=== PATIENT | male | born 1955 | race Caucasian/White ===

== ENCOUNTER → 2018-07-07 08:05 | Outpatient (CLI) | payer OTHER, SELFPAY ==
[2018-07-07 10:41] LABS: Vitamin D,25 Hydroxy 27.8 ng/mL (29.95-100.01)
[2018-07-07 10:45] LABS: Anion Gap 8 (5-15); BUN 21 mg/dL (7-18); BUN/Creat Ratio 16.9 RATIO (10-20); Chloride 106 mmol/L (98-107); Cholesterol 127 mg/dL (200); Creatinine, Serum 1.24 mg/dL (0.70-1.30); EST Glomerular Filtration Rate 63 mL/min (>60); Est Glom Filt Rate - Afr Amer 76 mL/min (>60); Glucose 125 mg/dL (74-106); High Density Lipoprotein 32 mg/dL; PSA,Total - Annual Screen 0.49 ng/mL (0.00-4.00); Potassium 4.2 mmol/L (3.5-5.1); Sodium Level 138 mmol/L (136-145); Thyroid Stim Hormone (TSH) 1.78 uIU/mL (0.358-3.74); Triglycerides 125 mg/dL; Very Low Density Lipoprotein 25 mg/dL (5-40)
[2018-07-08 14:04] LABS: Hemoglobin A1c 6.3 % (4.2-6.3)
== END ==
PROVIDERS: Visit Provider Family Medicine
DX: Z00.00 Encounter for general adult medical examination without abnormal findings (principal); I10 Essential (primary) hypertension
CPT/HCPCS: 36415; 80048; 80061; 82306; 83036; 84153; 84443; G0103

== ENCOUNTER 2018-08-02 07:20 | Day surgery (SDC) | payer OTHER, SELFPAY ==
[2018-08-02 07:36] VITALS: BP 148/82; PULSE 65; RESP 16; TEMP 36.3; O2SAT 96; BMI 31.9
--- NOTE | 2018-08-02 08:00 | COLBX_PTH ---
PATIENT: ESE GREENFIELD LOC: EN U#:[id number] AGE/SX: 62/M ROOM: RE08/02/[address]: Dr. Aidan Pride MD : 1955 BED: DIS: 08/02/2018 SPEC #: [id number] RECD: 08/02/18 12:22 STATUS: JUAN JOSE KSENIA #: [id number] [place]: 08/02/18 08:[address]: Aidan Pride DEPT: SURGICAL PATHOLOGY RECD BY: Ana Kasper ENTERED: 08/02/18 12:46 SP TYPE: COLON BX OTHR DR: Dr. Riccardo Brown MD Tissues: A - POLYP B - Descending colon Procedures: Surgery Specimen Level IV HEADER OPERATION: Colonoscopy (MAC) PRE-OP DIAGNOSIS: Screening TISSUE SUBMITTED: A. Hepatic flexure polyps, B. Polyp at 55 cm descending colon MICROSCOPIC DIAGNOSIS A. Polyps at hepatic flexure, biopsy: Fragments of tubular adenoma. B. Colonic polyp at 55 cm, biopsy: Benign lipomatous polyp. See microscopic description. AM:boris 08/03/18 MICROSCOPIC DESCRIPTION Slides are reviewed. B. Sections show normal colonic mucosa overlying a lipoma that is present below the muscularis mucosa. GROSS DESCRIPTION A - Received in fixative is one container labeled with the patient's name and designated hepatic flexure polyps. The specimen consists of multiple irregular fragments of light boss soft tissue that in aggregate measure 1 x 0.3 x 0.2 cm. The specimen is totally submitted in one cassette. B - Received in fixative is one container labeled with the patient's name and designated polyp at 55 cm descending colon. The specimen consists of a pink-red polyp measuring 2 x 2 x 1.3 cm. The apparent base is inked. The polyp is serially sectioned and submitted entirely in two cassettes. / SJ:boris 08/02/18 TC:1 CPT: 98424 x2
--- NOTE | 2018-08-02 08:38 | HP.PCM_ITS ---
History of Present Illness Date of Admission: 08/02/18 Chief Complaint: Screening colonoscopy The patient is a 62 year old M here for screening colonoscopy. The patient reports he is never had a colonoscopy in the past. He is not having any abdominal pain or blood in his stools. He has no family history of colon cancer. Past Medical/Surgical History - Planned Operation Planned Operative Procedure/s: colonoscopy open access Date of Operative Procedure: 08/02/18 Permit Signed: No S.O.S: No Is This Patient Having a Total Joint: No - Previous Hospitalizations/Surgeries HX Hospitalizations: No Any Problems With Anesthesia: No You/Your Family Experience Fever (Hyperthermia) With Anes: No Cholinesterase deficiency: No - Cardiovascular Hx Chest Pain within Last 2 months: No Hx of Irregular Heartbeat and/or Afib: No Hx Heart Attack: No Hx Congestive Heart Failure: No Hx Rheumatic Fever: No Hx Hypertension: Yes - controlled with med Hx Internal Defibrillator: No Hx Pacemaker: No Hx Cardiac Catheterization: No Hx Cardiac Surgery/Stents/Etc.: No Hx Stress Test: No HX Edema: No Hx Pain in Legs when Walking/Leg Cramps: No - Respiratory Chronic Cough: No HX of Shortness of Breath: Yes - slightly sob with 2 flights of stairs Hoarseness: No Hx Chronic Obstructive Pulmonary Disease (COPD): No Hx Asthma: No Hx Emphysema: No Hx Sleep Apnea: No Hx Oxygen Use at Home: No Hx Respiratory Tract Infection/Cold (presently): No Do You Snore Loudly (louder than talking or can be heard): Yes Do You Often Feel Tired/ Fatigued/ Sleepy Dring Daytime?: No Has Anyone Observed You Stop Breathing During Sleep?: No Result (for STOP score): Positive Hx Smoking: No Smoking Status: Never smoker - Gastrointestinal Hx Gastroesophageal Reflux: No - occ heartburn Hx Gastrointestinal Disorders: No Hx Gastrointestinal Bleed: No Hx Ulcer: No Hx Hiatal Hernia: No Difficulty Chewing/Swallowing: No Recent Onset of Swallowing Problems: No Special diet followed at home: No Hx Unplanned Weight Loss of 20#: No HX Unplanned Weight Gain of 20#: No - Neurological Hx Seizures: No HX Syncope/Blackout Spells/Unconsciousness: No Hx CVA/Stroke: No Hx Transient Ischemic Attacks (TIA): No Hx Multiple Sclerosis: No Hx Parkinson's Disease: No Hx Head/Neck Injury: No Hx Headaches: Yes - occ Hx Back Injury/Pain: Yes - back pain prn Recent Onset of Speech Difficulty: No Restless Legs: Yes Does patient have nerve stimulator: No Patient instructed to have device shut off: No Rep notified?: No - Blood Disorder Hx Leukemia: No Bleeding Tendencies: No Hx Deep Vein Thrombosis: No Hx High Cholesterol: No Blood Transmitted Disease: No Hx Hepatitis: No Hx Cirrhosis: No Hx Anemia: No Hx Blood Disorders: No - Genitourinary Hx Renal Disease: No - Musculoskeletal Hx Arthritis: No Hx Rheumatoid Arthritis: No Hx Gout: No Recent Onset of an Orthopedic Problem: No - Endocrine Hx Diabetes: No Thyroid Disease: No Hx Steroid Therapy: No - Psycho/Social Hx Substance Use: No Hx Alcohol Use: No Hx Anxiety: No Hx Depression: No Mental Illness: No Hx Dementia: No - Miscellaneous Hx Cancer: No Recent Exposure to Contagious Disease: No Active MRSA: No Hx of C-Diff: No Any Loose Teeth: No - upper partial Allergies No Known Allergies Allergy (Verified 08/01/18 15:09) - Discharge Is Pt Admitted From a Care Home, or a Halfway: No Who Could Help: family After D/C, Where Do you Plan to Go: Return Home - Physical Exam General: Alert, Oriented x3, Cooperative Lungs: Normal air movement Cardiovascular: Regular rate, Regular Rhythm Abdomen: Soft, Non Tender, Non-Distended Vital Signs Temp Pulse Resp BP Pulse Ox 97.3 F L 65 16 148/82 H 96 08/02/18 07:36 08/02/18 07:36 08/02/18 07:36 08/02/18 07:36 08/02/18 07:36 Oxygen Delivery Method Room Air Weight: 216 lb 4.375 oz Body Mass Index (BMI) 31.9 Assessment/Plan 62-year-old male screening colonoscopy 1. I explained endoscopy in detail to the patient. I explained the risks including but not limited to stroke or heart attack with anesthesia, perforation of the GI tract, bleeding, infection. I explained that any of these could necessitate further emergency surgery. The patient understands and all questions were answered sufficiently. The patient wishes to proceed with pro cedure. Aidan Pride MD Pager: [facility] [address] [place] [address], [address] [place] [phone] Office: Surgery Risks - Colonoscopy Risks Include but are not Limited To: Risks include but are not limited to: Bleeding, perforation requiring further surgery, inability to complete colonoscopy requiring barium enema.
[2018-08-02 08:40] VITALS: BP 135/91; BP 148/82; PULSE 74; RESP 16; TEMP 36.9; O2SAT 94
[2018-08-02 08:45] VITALS: BP 143/89; BP 148/82; PULSE 75; RESP 16; O2SAT 94
--- NOTE | 2018-08-02 08:45 | OP.ENDO_ITS ---
Patient Name: Claude Schmidt Procedure Date: 08/02/2018 7:34 AM Date of : 1955 Age: 62 Procedure: Colonoscopy Indications: Screening for colorectal malignant neoplasm Providers: Aidan Pride MD Referring MD: Aidan Pride MD Medicines: Monitored Anesthesia Care Patient Profile: This is a 62 year old male. Refer to note in patient chart for documentation of history and physical. Last Colonoscopy: none. The patient's first colonoscopy is today. Complications: No immediate complications. Estimated blood loss: None. Procedure: Pre-Anesthesia Assessment: - Prior to the procedure, a History and Physical was performed, and patient medications and allergies were reviewed. The patient's tolerance of previous anesthesia was also reviewed. The risks and benefits of the procedure and the sedation options and risks were discussed with the patient. All questions were answered, and informed consent was obtained. Prior Anticoagulants: The patient has taken no previous anticoagulant or antiplatelet agents. After reviewing the risks and benefits, the patient was deemed in satisfactory condition to undergo the procedure. After I obtained informed consent, the scope was passed under direct vision. Throughout the procedure, the patient's blood pressure, pulse, and oxygen saturations were monitored continuously. The colonoscope was introduced through the anus and advanced to the cecum, identified by the appendiceal orifice, ileocecal valve and palpation. The colonoscopy was performed without difficulty. The patient tolerated the procedure well. The quality of the bowel preparation was good. Scope In: 8:08:30 AM Scope Withdrawal Time 0 hours 22 minutes 36 seconds Scope Out: 8:34:45 AM Total Procedure Duration Time 0 hours 26 minutes 15 seconds Findings: Two polyps were found in the hepatic flexure. The polyps were less than 5 mm in size. These polyps were removed with a hot snare. Resection and retrieval were complete. A 15 mm polyp was found in the descending colon. The polyp was pedunculated. The polyp was removed with a hot snare. Resection and retrieval were complete. Because the mucosal defect was large, two clips were successfully placed. There was no bleeding at the end of the procedure. Impression: - Two less than 5 mm polyps at the hepatic flexure, removed with a hot snare. Resected and retrieved. - One 15 mm polyp in the descending colon, removed with a hot snare. Resected and retrieved. Clips were placed. Recommendation: - Await pathology results. - Repeat colonoscopy for surveillance based on pathology results. - Physician's office will call you with pathology results and recommendations for when to repeat colonoscopy. - Discharge patient to home. - Resume previous diet. - Continue present medications. Procedure Code(s): --- Professional --- 33921, PT, Colonoscopy, flexible; with removal of tumor(s), polyp(s), or other lesion(s) by snare technique Diagnosis Code(s): --- Professional --- Z12.11, Encounter for screening for malignant neoplasm of colon D12.3, Benign neoplasm of transverse colon (hepatic flexure or splenic flexure) D12.4, Benign neoplasm of descending colon CPT copyright 2017 [employer]. All rights reserved. The codes documented in this report are preliminary and upon dealer sales manager review may be revised to meet current compliance requirements. Aidan Pride MD 08/02/2018 8:45:11 AM This report has been signed electronically. Number of Addenda: 0 Note Initiated On: 08/02/2018 7:34 AM
[2018-08-02 08:50] VITALS: BP 148/82; BP 151/54; PULSE 62; RESP 16; O2SAT 94
[2018-08-02 08:55] VITALS: BP 148/82; BP 164/94; PULSE 74; RESP 16; TEMP 36.7; O2SAT 96
--- NOTE | 2018-08-02 08:55 | RAD_ITS ---
STUDY: X-RAY - ABDOMEN/PELVIS REASON FOR EXAM: Male, 62 years old. Post colonoscopy clip position. TECHNIQUE: Two AP supine views of the abdomen and pelvis. COMPARISON: None. FINDINGS: Normal visualized lung bases. Gaseous distention of the entire colon in keeping with the patient's history of colonoscopy. 2 clip markers are seen in the distal portion of the descending colon at the junction with the sigmoid colon. The visualized liver, spleen and kidneys are grossly normal in size and morphology. Normal soft tissue structures. Normal visualized osseous structures. RAD/Abdomen Single View (Portable) IMPRESSION: 2 clips are seen in the distal portion of the descending colon just proximal to the sigmoid colon. Gas is seen throughout the colon in keeping with the recent colonoscopy. Electronically Signed: Jack Gaona MD at 9:40 EST Tel [phone], Service support ,
[2018-08-02 09:32] VITALS: BP 148/82
== END 2018-08-02 09:32 | disposition home or self-care (01) ==
LOC: EN 07:20 → AC 07:22
PROVIDERS: Family Provider Family Medicine; PCP Family Medicine; Referring Provider Surgery; Visit Provider Surgery
PROC: 0DJD8ZZ Inspection of Lower Intestinal Tract, Via Natural or Artificial Opening Endoscopic (ICD-10-PCS; CPT 45378; principal; 2018-08-02 07:55)
DX: Z12.11 Encounter for screening for malignant neoplasm of colon (principal); D12.3 Benign neoplasm of transverse colon; D12.4 Benign neoplasm of descending colon; I10 Essential (primary) hypertension; Z79.899 Other long term (current) drug therapy
CPT/HCPCS: 45385; 74018; 88305; J7120

== ENCOUNTER → 2018-12-14 11:51 | Outpatient (CLI) | payer OTHER, SELFPAY ==
[2018-12-14 11:11] VITALS: BMI 32.8
[2018-12-14 12:28] LABS: Protein, Urine (Random) 48.8 mg/dL (<11.9)
[2018-12-14 13:18] LABS: Anion Gap 4 (5-15); BUN 22 mg/dL (7-18); BUN/Creat Ratio 20.4 RATIO (10-20); Calcium,Total 8.9 mg/dL (8.5-10.1); Chloride 107 mmol/L (98-107); Creatinine, Serum 1.08 mg/dL (0.70-1.30); EST Glomerular Filtration Rate 74 mL/min (>60); Est Glom Filt Rate - Afr Amer 89 mL/min (>60); Glucose 94 mg/dL (74-106); Magnesium 2.2 mg/dL (1.6-2.6); Potassium 4.3 mmol/L (3.5-5.1); Sodium Level 135 mmol/L (136-145); Thyroid Stim Hormone (TSH) 1.34 uIU/mL (0.358-3.74)
== END ==
PROVIDERS: Family Provider Family Medicine; PCP Family Medicine; Referring Provider Internal Medicine Cardiovascular Disease; Visit Provider Internal Medicine Cardiovascular Disease
DX: I10 Essential (primary) hypertension (principal)
CPT/HCPCS: 36415; 80048; 83735; 84156; 84443

== ENCOUNTER → 2019-01-11 07:56 | Outpatient (CLI) | payer OTHER, SELFPAY ==
[2018-12-14 11:11] VITALS: BMI 32.8
--- NOTE | 2019-01-11 07:58 | ECHOD_ITS ---
Reason For Study: HTN Procedure This was a 2D Doppler, Color Flow transthoracic echocardiogram. Exam performed in department. Left Ventricle Normal LV size. Left ventricular systolic function is normal. The estimated ejection fraction is 60 %. Stage 1 diastolic dysfunction. No regional wall motion abnormalities noted. Right Ventricle Normal RV size. Normal systolic function. Atria Normal left atrium. Normal right atrium. Patent foramen ovale. Mitral Valve Normal mitral valve. Mild (1+) eccentric mitral valve insufficiency. Tricuspid Valve Normal tricuspid valve. Mild tricuspid valve insufficiency. Pulmonary artery systolic pressure is 30 mmHg. Aortic Valve Trisinus/trileaflet aortic valve. Mild focal aortic valve thickening. Pulmonic Valve Normal pulmonic valve. Great Vessels Normal aortic root. The pulmonary artery is normal size. Normal inferior vena cava. Pericardium/Pleural No pericardial effusion. Medication 22 gauge I.V. with prn adaptor inserted into right arm. Performed a rapid injection of agitated mix of 9 cc saline and 1cc air to assess for atrial septal defect. MMode/2D Measurements & Calculations LVIDd: 5.1 cm IVSd: 1.1 cm Ao root diam: 3.5 cm LVIDs: 3.7 cm LVPWd: 1.1 cm RVDd: 3.8 cm FS: 28.9 % LAV(MOD-bp): 50.9 ml LVAd ap4: 48.1 cm2 SV(MOD-sp4): 98.8 ml LAV(MOD-bp) Indexed: 23.4 ml/m2 EDV(MOD-sp4): 197.0 ml LAV(MOD-sp2): 53.0 ml EDV(sp4-el): 207.8 ml LAV(MOD-sp4): 44.0 ml LVAs ap4: 30.9 cm2 ESV(MOD-sp4): 98.2 ml ESV(sp4-el): 97.0 ml EF(MOD-sp4): 50.2 % EF(sp4-el): 53.3 % SV(sp4-el): 110.8 ml LA A4 area: 15.8 cm2 LA dimension(2D): 3.9 cm RA A4 area: 18.3 cm2 Time Measurements MV dec time: 0.23 sec Doppler Measurements & Calculations MV E max johnny: 73.0 cm/sec Lat Peak E' Johnny: 10.3 cm/sec Med Peak E' Johnny: 8.7 cm/sec MV A max johnny: 93.2 cm/sec E/E' lat: 7.1 E/E' med: 8.4 MV E/A: 0.78 Ao V2 max: 165.7 cm/sec LV V1 max: 114.7 cm/sec PA V2 max: 113.2 cm/sec Ao max P.0 mmHg LV V1 max P.3 mmHg TR max johnny: 261.6 cm/sec TR max P.4 mmHg Interpretation Summary Normal LV size. Left ventricular systolic function is normal. The estimated ejection fraction is 60 %. Stage 1 diastolic dysfunction. Patent foramen ovale. Structurally normal valves. Ordering Physician: Cortez Nobles Referring Physician: QASIM MELARA Performed By: Stephanie Trammell RDCS
== END ==
PROVIDERS: Family Provider Family Medicine; PCP Family Medicine; Referring Provider Internal Medicine Cardiovascular Disease; Visit Provider Internal Medicine Cardiovascular Disease
DX: I10 Essential (primary) hypertension (principal)
CPT/HCPCS: 93306

== ENCOUNTER → 2019-05-11 09:36 | Outpatient (CLI) | payer OTHER, SELFPAY ==
[2019-01-16 15:50] VITALS: BMI 32.8
== END ==
PROVIDERS: Family Provider Family Medicine; PCP Family Medicine; Referring Provider Family Medicine; Visit Provider Family Medicine
DX: N52.9 Male erectile dysfunction, unspecified (principal)
CPT/HCPCS: 36415; 84403

== ENCOUNTER → 2019-05-18 08:40 | Outpatient (CLI) | payer OTHER, SELFPAY ==
--- NOTE | 2019-05-17 08:15 | MASS_PTH ---
PATIENT: ESE GREENFIELD LOC: [facility] U#:[id number] AGE/SX: 69/M ROOM: RE05/18/[address]: Dr. Aidan Pride MD : 1955 BED: DIS: SPEC #: [id number] RECD: 05/17/19 11:21 STATUS: JUAN JOSE KSENIA #: [id number] [place]: 05/17/19 08:[address]: Aidan Pride DEPT: SURGICAL PATHOLOGY RECD BY: Garrett Ferraro ENTERED: 05/18/19 08:52 SP TYPE: Mass OTHR DR: Dr. Riccardo Brown MD Tissues: Neck, NOS Procedures: Surgery Specimen Level III HEADER OPERATION: Excision of posterior neck soft tissue mass PRE-OP DIAGNOSIS: Neck mass R22.1 TISSUE SUBMITTED: Posterior neck soft tissue mass MICROSCOPIC DIAGNOSIS Posterior neck soft tissue mass, excision: Mature adipose tissue, consistent with lipoma. SJ:boris 8/22/19 MICROSCOPIC DESCRIPTION Slides are reviewed. GROSS DESCRIPTION Received in fixative is one container labeled with the patient's name and designated possible neck cyst. The specimen consists of a piece of yellow adipose tissue measuring 3.5 x 2.5 x 2 cm. The external surface is inked. Sections reveal yellow adipose cut surfaces without areas of hemorrhage, necrosis or cystic degeneration. Marketing Sales Representative sections are submitted in four cassettes. / SJ:rg 05/17/19 TC:1 CPT: 07999
[2019-05-17 08:20] VITALS: BMI 32.8
== END ==
PROVIDERS: Family Provider Family Medicine; PCP Family Medicine; Referring Provider Surgery; Visit Provider Surgery
DX: R22.1 Localized swelling, mass and lump, neck (principal)
CPT/HCPCS: 88304

== ENCOUNTER → 2019-09-22 13:32 | Outpatient (CLI) | payer OTHER, SELFPAY ==
[2019-08-10 07:24] VITALS: BMI 32.8
[2019-09-22 16:31] LABS: Vitamin D,25 Hydroxy 22.9 ng/mL (29.95-100.01)
[2019-09-22 16:36] LABS: Anion Gap 8 (5-15); BUN 20 mg/dL (7-18); BUN/Creat Ratio 15.3 RATIO (10-20); Calcium,Total 8.4 mg/dL (8.5-10.1); Chloride 107 mmol/L (98-107); Cholesterol 151 mg/dL (200); Creatinine, Serum 1.31 mg/dL (0.70-1.30); EST Glomerular Filtration Rate 59 mL/min (>60); Est Glom Filt Rate - Afr Amer 71 mL/min (>60); Glucose 89 mg/dL (74-106); High Density Lipoprotein 36 mg/dL; PSA,Total - Annual Screen 0.36 ng/mL (0.00-4.00); Potassium 3.8 mmol/L (3.5-5.1); Sodium Level 139 mmol/L (136-145); Triglycerides 138 mg/dL; Very Low Density Lipoprotein 28 mg/dL (5-40)
== END ==
PROVIDERS: Family Provider Family Medicine; PCP Family Medicine; Visit Provider Family Medicine
DX: Z00.00 Encounter for general adult medical examination without abnormal findings (principal)
CPT/HCPCS: 36415; 80048; 80061; 82306; 84153; G0103

== ENCOUNTER → 2023-04-15 | Outpatient (CLI) | payer OTHER, SELFPAY ==
[2023-04-15 18:21] LABS: Anion Gap 6 (5-15); BUN 27 mg/dL (7-18); BUN/Creat Ratio 20.9 RATIO (10-20); Calcium,Total 8.3 mg/dL (8.5-10.1); Chloride 108 mmol/L (98-107); Cholesterol 136 mg/dL (200); Creatinine, Serum 1.29 mg/dL (0.70-1.30); EST Glomerular Filtration Rate 59 mL/min (>60); Est Glom Filt Rate - Afr Amer 72 mL/min (>60); Glucose 177 mg/dL (74-106); High Density Lipoprotein 27 mg/dL; Sodium Level 136 mmol/L (136-145); Triglycerides 301 mg/dL; Very Low Density Lipoprotein 60 mg/dL (5-40)
== END | disposition home or self-care (01) ==
LOC: MFPLAB 15:02
PROVIDERS: PCP Family Medicine; Visit Provider Family Medicine
DX: I10 Essential (primary) hypertension (principal)
CPT/HCPCS: 36415; 80048; 80061

== ENCOUNTER → 2023-06-03 | Outpatient (CLI) | payer OTHER, SELFPAY ==
[2023-06-03 11:20] LABS: Hemoglobin A1c 7.4 % (3.8-5.6)
== END | disposition home or self-care (01) ==
LOC: MFPLAB 08:03
PROVIDERS: PCP Family Medicine; Visit Provider Family Medicine
DX: R73.9 Hyperglycemia, unspecified (principal)
CPT/HCPCS: 36415; 83036

== ENCOUNTER 2023-08-31 07:40 | Day surgery (SDC) | payer OTHER, SELFPAY ==
[2023-08-31] MEDS: Lactated Ringers 1,000 ML 15 ML IV (08:10)
[2023-08-31 08:11] VITALS: BP 143/83; PULSE 64; RESP 16; TEMP 36.2; O2SAT 99; BMI 31.8
--- NOTE | 2023-08-31 09:00 | COLBX_PTH ---
PATIENT: ESE GREENFIELD LOC: EN U#:[id number] AGE/SX: 67/M ROOM: RE08/31/[address]: Dr. Aidan Pride MD : 1955 BED: DIS: 08/31/2023 SPEC #: [id number] RECD: 08/31/23 13:10 STATUS: JUAN JOSE KSENIA #: [id number] [place]: 08/31/23 09:[address]: Aidan Pride DEPT: SURGICAL PATHOLOGY RECD BY: Amanda Ayers ENTERED: 08/31/23 13:34 SP TYPE: COLON BX OTHR DR: Dr. Riccardo Brown MD Tissues: Cecum, NOS Procedures: Surgery Specimen Level IV HEADER OPERATION: Colonoscopy - open access, polypectomy PRE-OP DIAGNOSIS: History of colon polyps TISSUE SUBMITTED: Cecal polyp MICROSCOPIC DIAGNOSIS Cecal polyp, polypectomy: Inflammatory polyp. SJ:boris 09/01/2023 MICROSCOPIC DESCRIPTION Slides are reviewed. GROSS DESCRIPTION Received in fixative is one container labeled with the patient's name and designated cecal polyp. The specimen consists of a pink-red polyp measuring 1.0 x 0.7 x 0.5 cm. The presumed base is inked. The polyp is bisected and submitted entirely in one cassette. / SJ:rg 08/31/2023 TC:5 CPT: 97775
--- NOTE | 2023-08-31 09:31 | HP.PCM_ITS ---
HPI - General HPI Narrative ESE GREENFIELD, is a 67 M who presents for surveillance colonoscopy. His last colonoscopy was 5 years ago and 3 polyps were removed. Patient does not complain of any abdominal pain or blood in the stool. [facility] Medical History (Updated 08/31/23 @ 09:[address] Aidan Pride MD) Arthritis Cardiology follow-up encounter Elevated hemoglobin A1c Essential (primary) hypertension Former smoker Heartburn History of echocardiogram History of lipoma Obesity Patent foramen ovale Tubular adenoma of colon Wears glasses Home Medications lisinopril 5 mg tablet 5 mg PO DAILY 05/15/19 [History Last Taken Unknown] potassium citrate 99 mg capsule 99 mg PO DAILY 07/13/23 [History Last Taken Unknown] Allergy/AdvReac Type Severity Reaction Status Date / Time No Known Allergies Allergy Verified 08/31/23 07:52 Family History Mother Heart disease Father Heart disease Other Diabetes Surgical History H/O colonoscopy with polypectomy History of carpal tunnel release Social History Smoking Status: Former smoker Past Medical/Surgical History Planned Operation Planned Operative Procedure/s: COLONOSCOPY S.O.S: No Previous Hospitalizations/Surgeries HX Hospitalizations: No Any Problems With Anesthesia: No You/Your Family Experience Fever (Hyperthermia) With Anes: No Cholinesterase deficiency: No Cardiovascular Hx Chest Pain within Last 2 months: No Hx of Irregular Heartbeat and/or Afib: No Hx Heart Attack: No Hx Congestive Heart Failure: No Hx Rheumatic Fever: No Hx Hypertension: Yes Hx Internal Defibrillator: No Hx Pacemaker: No Hx Cardiac Catheterization: No Hx Cardiac Surgery/Stents/Etc.: No Hx Stress Test: No Hx Pain in Legs when Walking/Leg Cramps: No Respiratory Chronic Cough: No HX of Shortness of Breath: Yes (slightly sob with 2 flights of stairs) Hoarseness: No Hx Chronic Obstructive Pulmonary Disease (COPD): No Hx Asthma: No Hx Emphysema: No Hx Sleep Apnea: No Hx Respiratory Tract Infection/Cold (presently): No Do You Snore Loudly (louder than talking or can be heard): No Do You Often Feel Tired/ Fatigued/ Sleepy Dring Daytime?: No Has Anyone Observed You Stop Breathing During Sleep?: No Result (for STOP score): Negative Hx Smoking: No Smoking Status: Former smoker Gastrointestinal Hx Gastrointestinal Disorders: No Hx Gastrointestinal Bleed: No Hx Ulcer: No Hx Hiatal Hernia: No Difficulty Chewing/Swallowing: No Special diet followed at home: No Hx Unplanned Weight Loss of 20#: No HX Unplanned Weight Gain of 20#: No Neurological Hx Seizures: No HX Syncope/Blackout Spells/Unconsciousness: No Hx Transient Ischemic Attacks (TIA): No Hx Multiple Sclerosis: No Hx Parkinson's Disease: No Hx Head/Neck Injury: No Hx Headaches: Yes (occ) Hx Back Injury/Pain: Yes (back pain prn) Recent Onset of Speech Difficulty: No Restless Legs: Yes Does patient have nerve stimulator: No Blood Disorder Hx Leukemia: No Bleeding Tendencies: No Hx Deep Vein Thrombosis: No Hx High Cholesterol: No Blood Transmitted Disease: No Hx Hepatitis: No Hx Cirrhosis: No Hx Anemia: No Hx Blood Disorders: No Genitourinary Hx Renal Disease: No Musculoskeletal Hx Arthritis: No Hx Rheumatoid Arthritis: No Hx Gout: No Recent Onset of an Orthopedic Problem: No Endocrine Hx Diabetes: No Thyroid Disease: No Hx Steroid Therapy: No Psycho/Social Hx Substance Use: No Hx Alcohol Use: No Hx Anxiety: No Hx Depression: No Mental Illness: No Hx Dementia: No Miscellaneous Hx Cancer: No Recent Exposure to Contagious Disease: No Hx of C-Diff: No Any Loose Teeth: No (upper partial) Allergies No Known Allergies Allergy (Verified 08/31/23 07:52) Discharge Is Pt Admitted From a Assisted, or a Fdc: No Who Could Help: After D/C, Where Do you Plan to Go: Return Home Vital Signs Vital Signs Vital Signs: 08/31/23 08:11 08/31/23 08:11 Temperature 97.2 F L Temperature Source Temporal Pulse Rate 64 Respiratory Rate 16 Respiratory Pattern Normal Blood Pressure 143/83 H Blood Pressure Mean 103 Blood Pressure Source Monitor Blood Pressure Position Semi-Fowlers Blood Pressure Location Right Arm Pulse Ox 99 Oxygen Delivery Method Room Air Weight Weight: 216 lb 0.848 oz Body Mass Index (BMI) 31.8 Physical Exam Const alert and oriented x3 HEENT normocephalic Eyes PERRL Resp normal respiratory effort and normal air movement Cardio regular rate and regular rhythm GI soft to palpation, non-tender and non-distended Extremity normal to inspection Assessment & Plan Assessment/Plan (1) History of colon polyps: PLAN: I explained endoscopy in detail to the patient. I explained the risks including but not limited to stroke or heart attack with anesthesia, perforation of the GI tract, bleeding, infection. I explained that any of these could necessitate further emergency surgery. The patient understands and all questions were answered sufficiently. The patient wishes to proceed with procedure. Aidan Pride MD Pager: [facility] [address] [place] [address] [address] [place] [address] Office: Surgery Risks - Colonoscopy Risks Include but are not Limited To: Risks include but are not limited to: Bleeding, perforation requiring further surgery, inability to complete colonoscopy requiring barium enema.
[2023-08-31 09:55] VITALS: BP 113/65; BP 143/83; PULSE 69; RESP 16; TEMP 36.3; O2SAT 96
--- NOTE | 2023-08-31 09:55 | OP.COLON_ITS ---
Patient Name: Zain Schmidt Procedure Date: 08/31/2023 9:33 AM Date of : 1955 Age: 67 Procedure: Colonoscopy Indications: High risk colon cancer surveillance: Personal history of colonic polyps Providers: Aidan Pride MD Medicines: Monitored Anesthesia Care Patient Profile: This is a 67 year old male. Refer to note in patient chart for documentation of history and physical. Last Colonoscopy: 5 years ago. Complications: No immediate complications. Procedure: Pre-Anesthesia Assessment: - Prior to the procedure, a History and Physical was performed, and patient medications and allergies were reviewed. The patient's tolerance of previous anesthesia was also reviewed. The risks and benefits of the procedure and the sedation options and risks were discussed with the patient. All questions were answered, and informed consent was obtained. Prior Anticoagulants: The patient has taken no anticoagulant or antiplatelet agents. After reviewing the risks and benefits, the patient was deemed in satisfactory condition to undergo the procedure. After I obtained informed consent, the scope was passed under direct vision. Throughout the procedure, the patient's blood pressure, pulse, and oxygen saturations were monitored continuously. The Colonoscope was introduced through the anus and advanced to the cecum, identified by appendiceal orifice and ileocecal valve. The colonoscopy was performed without difficulty. The patient tolerated the procedure well. The quality of the bowel preparation was good. The ileocecal valve, appendiceal orifice, and rectum were photographed. Scope In: 9:38:49 AM Scope Withdrawal Time 0 hours 8 minutes 5 seconds Scope Out: 9:49:53 AM Total Procedure Duration Time 0 hours 11 minutes 4 seconds Findings: A polyp was found in the cecum. The polyp was removed with a hot snare. Resection and retrieval were complete. The exam was otherwise without abnormality on direct and retroflexion views. Impression: - One polyp in the cecum, removed with a hot snare. Resected and retrieved. - The examination was otherwise normal on direct and retroflexion views. Recommendation: - Discharge patient to home. - Resume previous diet. - Continue present medications. - Await pathology results. - Repeat colonoscopy in 5 years for surveillance based on pathology results. Procedure Code(s): --- Professional --- 44379, Colonoscopy, flexible; with removal of tumor(s), polyp(s), or other lesion(s) by snare technique Diagnosis Code(s): --- Professional --- Z86.010, Personal history of colonic polyps D12.0, Benign neoplasm of cecum CPT copyright 2021 [employer]. All rights reserved. The codes documented in this report are preliminary and upon detail sergeant review may be revised to meet current compliance requirements. Aidan Pride MD 08/31/2023 9:55:25 AM This report has been signed electronically. Number of Addenda: 0 Note Initiated On: 08/31/2023 9:33 AM
--- NOTE | 2023-08-31 09:55 | OP.CCLET_ITS ---
08/31/2023 Riccardo Brown MD [address] [place] [address] Re : Colonoscopy procedure for Zain Schmidt Dear Dr. Brown This procedure was performed on Thursday, August 31, 2023. My impressions and recommendations are as follows: Impressions : - One polyp in the cecum, removed with a hot snare. Resected and retrieved. - The examination was otherwise normal on direct and retroflexion views. Recommendations : - Discharge patient to home. - Resume previous diet. - Continue present medications. - Await pathology results. - Repeat colonoscopy in 5 years for surveillance based on pathology results. My findings are described in the full procedure note, which is enclosed. If I can be of further assistance, please feel free to contact me at Doctor phone number(s): , Work: . Sincerely, Aidan Pride MD 08/31/2023 9:55:25 AM This report has been signed electronically.
[2023-08-31 10:00] VITALS: BP 106/57; BP 143/83; PULSE 58; RESP 16; O2SAT 98
[2023-08-31 10:05] VITALS: BP 116/62; BP 143/83; PULSE 62; RESP 16; TEMP 36.9; O2SAT 97
[2023-08-31 10:20] VITALS: BP 143/83
== END 2023-08-31 10:30 | disposition home or self-care (01) ==
LOC: EN 07:41 → AC 07:43
PROVIDERS: PCP Family Medicine; Referring Provider Surgery; Visit Provider Surgery
PROC: 0DJD8ZZ Inspection of Lower Intestinal Tract, Via Natural or Artificial Opening Endoscopic (ICD-10-PCS; CPT 45378; principal; 2023-08-31 08:55)
DX: Z12.11 Encounter for screening for malignant neoplasm of colon (principal); K63.5 Polyp of colon; Z87.891 Personal history of nicotine dependence; I10 Essential (primary) hypertension; Z86.010 Personal history of colon polyps; Z79.899 Other long term (current) drug therapy; E66.9 Obesity, unspecified; Z68.31 Body mass index [BMI] 31.0-31.9, adult
CPT/HCPCS: 45385; 88305; J7120

== ENCOUNTER → 2023-10-06 | Outpatient (CLI) | payer OTHER, SELFPAY ==
[2023-10-06 11:26] LABS: Anion Gap 7 (5-15); BUN 26 mg/dL (7-18); BUN/Creat Ratio 17.1 RATIO (10-20); Calcium,Total 9.6 mg/dL (8.5-10.1); Chloride 110 mmol/L (98-107); Cholesterol 127 mg/dL (200); Creatinine, Serum 1.52 mg/dL (0.70-1.30); EST Glomerular Filtration Rate 49 mL/min (>60); Est Glom Filt Rate - Afr Amer 59 mL/min (>60); Glucose 155 mg/dL (74-106); High Density Lipoprotein 33 mg/dL; Potassium 4.1 mmol/L (3.5-5.1); Sodium Level 138 mmol/L (136-145); Triglycerides 86 mg/dL; Very Low Density Lipoprotein 17 mg/dL (5-40)
[2023-10-06 15:28] LABS: Hemoglobin A1c 7.2 % (3.8-5.6)
== END | disposition home or self-care (01) ==
LOC: MFPLAB 08:31
PROVIDERS: PCP Family Medicine; Visit Provider Family Medicine
DX: I10 Essential (primary) hypertension (principal); R73.9 Hyperglycemia, unspecified
CPT/HCPCS: 36415; 80048; 80061; 83036

== ENCOUNTER → 2024-07-31 | Outpatient (CLI) | payer OTHER, SELFPAY ==
[2024-07-31 10:38] LABS: Anion Gap 7 (5-15); BUN 29 mg/dL (7-18); Calcium,Total 9.2 mg/dL (8.5-10.1); Chloride 106 mmol/L (98-107); Cholesterol 129 mg/dL (200); Creatinine, Serum 1.38 mg/dL (0.70-1.30); EST Glomerular Filtration Rate 55 mL/min (>60); Est Glom Filt Rate - Afr Amer 66 mL/min (>60); Glucose 161 mg/dL (74-106); High Density Lipoprotein 33 mg/dL; PSA,Total - Annual Screen 0.49 ng/mL (0.00-4.00); Potassium 4.4 mmol/L (3.5-5.1); Sodium Level 136 mmol/L (136-145); Triglycerides 130 mg/dL; Very Low Density Lipoprotein 26 mg/dL (5-40)
[2024-07-31 11:38] LABS: Hemoglobin A1c 6.8 % (3.8-5.6)
== END | disposition home or self-care (01) ==
LOC: MFPLAB 08:10
PROVIDERS: PCP Family Medicine; Visit Provider Family Medicine
DX: Z00.00 Encounter for general adult medical examination without abnormal findings (principal); I10 Essential (primary) hypertension; R73.9 Hyperglycemia, unspecified
CPT/HCPCS: 36415; 80048; 80061; 83036; 84153; G0103

== ENCOUNTER → 2024-10-27 | Outpatient (CLI) | payer OTHER, SELFPAY ==
[2024-10-27 10:57] LABS: Protein, Urine (Random) 32.5 mg/dL (<11.9); Protein:Creat Ratio 256 mg/g CRE (0-200)
[2024-10-27 11:18] LABS: Anion Gap 8 (5-15); BUN 30 mg/dL (7-18); BUN/Creat Ratio 18.9 RATIO (10-20); Calcium,Total 9.3 mg/dL (8.5-10.1); Chloride 108 mmol/L (98-107); Cholesterol 121 mg/dL (200); Creatinine, Serum 1.59 mg/dL (0.70-1.30); EST Glomerular Filtration Rate 46 mL/min (>60); Est Glom Filt Rate - Afr Amer 56 mL/min (>60); Glucose 129 mg/dL (74-106); High Density Lipoprotein 36 mg/dL; Sodium Level 138 mmol/L (136-145); Triglycerides 115 mg/dL; Very Low Density Lipoprotein 23 mg/dL (5-40)
[2024-10-27 16:59] LABS: Hemoglobin A1c 6.7 % (3.8-5.6)
== END | disposition home or self-care (01) ==
LOC: MFPLAB 08:01
PROVIDERS: PCP Family Medicine; Referring Provider Family Medicine; Visit Provider Family Medicine
DX: E11.9 Type 2 diabetes mellitus without complications (principal); I10 Essential (primary) hypertension
CPT/HCPCS: 36415; 80048; 80061; 82570; 83036; 84156